=== PATIENT | male | born 1970 | race Caucasian/White ===

== ENCOUNTER 2017-01-08 14:07 | Emergency (ER) | payer OTHER ==
[~2017-01-08] VITALS: Ht 172.7 cm; Wt 81.8 kg
[2017-01-08 14:10] VITALS: BP 152/102; PULSE 82; RESP 16; O2SAT 99
--- NOTE | 2017-01-08 14:19 | ED.REPORT ---
HPI-Hand Prob/Inj Date of Service Jan 08, 2017 ED Provider: Ajit Mercado MD 46 year old male presents to the ER due to a laceration to the left hand secondary to a high-speed router bit "exploding" while he was working on an art project at home just prior to arrival. Patient denies any numbness or loss of function in the affected hand. Last tetanus vaccination date is unknown. Nursing Notes Stated Complaint: LEFT HAND LACERATION Chief Complaint: Laceration Nursing Notes Reviewed: Yes Allergies: Coded Allergies: No Known Allergies (Unverified , 01/08/17) General Time Seen by Provider: 14:18 Chief Complaint Hand injury left Hx Obtained From: Patient Arrived By: Walk-in Onset Occurred: Just prior to arrival Context of Onset: Home injury Symptom Duration: Since onset Caused by: Accidental (\\) Severity: Current: Moderate Severity: Maximum: Moderate Pertinent Negative: Pt denies other symptoms Similar Sx Previous: No Past Medical History Past Medical History Healthy Smoking History Never Smoker Social History Alcohol Use: "Social" Other Social History: Good social support Ambulatory Status Independent Review of Systems Constitutional: Denies: Chills, Fever Musculoskeletal: Reports: Extremity pain (Left Hand), Denies: Back pain, Joint pain, Lumbar pain, Neck pain, Thoracic pain Complete sys rev & neg: except as marked. Physical Exam Initial Vital Signs Vital Signs (First) Date Time Temp Pulse Resp B/P Pulse Ox O2 Delivery O2 Flow Rate FiO2 01/08/17 14:10 36.1 82 16 152/102 99 Room Air Initial VS: Reviewed General/Constitutional: Well-developed, Well-nourished Head / Eyes: Atraumatic, Normocephalic Neck: Supple, Non-tender, Full range of motion Extremities: Vascular intact, Neuro intact, No swelling, No tenderness Skin: Warm, Dry, No cyanosis Neurologic: Alert, Oriented, Nonfocal Psychiatric: Mood/affect normal, Behavior normal, Normal thought content Wrist / Hand: Full range of motion, Neurologic intact, Vascular intact 1.5cm laceration to the web space of the Left hand between thethumb and index finger, more on the palmar aspect. Procedures Laceration Management Time: 14:23 Procedure Performed by: ED physician Consent / Setup / Site Prep: Informed consent provided, Consent from patient , Time-out performed, Hand hygiene observed, Stand sterile technique Location of Wound: 1.5cm laceration to the web space of the Left hand between thethumb and index finger, more on the palmar aspect. Local Anesthesia: Lidocaine 1% Digital Block: No Wound Preparation: Normal saline Irrigation: Copious Foreign Body Explore / Removal: Explored for foreign body Repair Skin: ___ O (4), Nylon # Sutures - Skin: 3 Closure Layers: 1 Suture Technique: Simple Post-Procedure / Complications: Dressing applied, No complications, Condition improved, Tolerated procedure well, Patient stable Re-Eval/Medical Decision Re-Evaluation/Progress : Time of Eval: 14:27 Re-Evaluation/Progress Note: Completed laceration management. Discussed plan to discharge. Patient is amenable to the plan. Return precautions given. All other questions addressed. Counseled Regarding: Diagnosis, Need for follow-up, When/why to return to ED Discharge & Departure Primary Impression: Hand laceration Disposition: Home Discharge Condition All VS Reviewed: Yes Condition: Stable Patient Instructions: Laceration (DC) Additional Instructions: Keep the wound clean and dry. Your stitches will have to be removed in 7 days. Return to the ER if you develop redness, swelling, wound discharge, pus, fever, chills, or any other signs of infection. Scribe Attestation Portions of this note were transcribed by Eloise Pradhan. I, Dr. Mercado, personally performed the history, physical exam and medical decision-making; I reviewed and confirmed the accuracy of the information in the transcribed note. Signed by: Shamika Ramirez, 01/08/2017 and 14:36 Ajit Mercado MD Jan 08, 2017 14:19 ELOISE PRADHAN Jan 08, 2017 14:27
[2017-01-08] MEDS ORDERED: TdaP Vaccine 0.5 mL Inj IM ONE (14:40)
== END 2017-01-08 15:20 | disposition home or self-care (01) ==
LOC: SED 14:07
DX: S61.412A Laceration without foreign body of left hand, initial encounter (principal); W29.8XXA Contact with other powered hand tools and household machinery, initial encounter; Y93.89 Activity, other specified; Y92.019 Unspecified place in single-family (private) house as the place of occurrence of the external cause; Y99.8 Other external cause status